=== PATIENT | male | born 1990 | race Caucasian/White ===

== ENCOUNTER 2023-06-09 22:32 | Inpatient (IN) | payer BC, SELFPAY ==
[2023-06-09 19:21] VITALS: BP 130/86
--- NOTE | 2023-06-09 19:37 | ED.GENMED ---
History of Present Illness
General
Chief Complaint: Abdominal Pain
Source: patient
Exam Limitations: none
Time Seen by Provider: 06/09/23 19:28
Travel History
Have you had any contact with someone who has COVID-19?: No
Do you have any symptoms of coronavirus? Fever > 100 degrees, chills, cough, shortness of breath, sore throat, loss of taste or smell, muscle aches, or headache?: No
History of Present Illness
History of Present Illness:
See MDM
Past History
Past History
ED Past Medical History: None
ED Past Surgical History: None
Social History
Tobacco: Non-smoker
Alcohol: None
Phy Exam
Physical Exam
Physical Exam:
See MDM
Course
Orders/Labs/Results
Orders:
Orders
06/09/23 19:37
CT Abd/pelvis W Iv Cont Urgent
Comment:
Reason For Exam: RLQ pain
Ketorolac [Toradol] 30 mg IV NOW STA
06/09/23 19:52
Complete Blood Count/With Diff Urgent
Comprehensive Metabolic Panel Urgent
Abnormal Lab Results
06/09/23
19:52
WBC 13.1 H 10^3/uL
(4.8-10.8)
RBC 4.66 L 10^6/uL
(4.70-6.10)
MCH 31.5 H pg
(27.0-31.0)
MPV 11.5 H fL
(7.4-10.4)
Absolute Neuts (auto) 8.8 H 10^3/uL
(1.4-6.5)
Absolute Monos (auto) 0.9 H 10^3/uL
(0.1-0.6)
Total Bilirubin 2.0 H mg/dl
(0.2-1.3)
ALT 104 H U/L
(0-50)
06/09/23 19:52
06/09/23 19:52
Vital Signs
Initial and Last Documented VS:
Initial Vital Signs
Temp Pulse Resp BP Pulse Ox
97.7 F 84 20 130/86 99
06/09/23 19:21 06/09/23 19:21 06/09/23 19:21 06/09/23 19:21 06/09/23 19:21
Last Documented Vital Signs
Temp Pulse Resp BP Pulse Ox
97.7 F 84 20 130/86 99
06/09/23 19:21 06/09/23 19:21 06/09/23 19:21 06/09/23 19:21 06/09/23 19:21
MDM/Problems Addressed
Differential Diagnosis Includes:
HPI and MDM Narrative:
32-year-old male presenting with vague abdominal pain since yesterday that is now radiating to his right groin. Patient states pain is worse with certain movements. He denies fevers or urinary symptoms. He has had a kidney stone in the past but
states this feels different. He is worried about possible appendicitis
Patient is tender in the right lower quadrant. Will obtain CT
Physical exam
General: Well appearing and non-toxic
HEENT: protecting airway
Neck: appears supple
CV: No evidence of cyanosis
Resp: No accessory muscle use
Abd: Non-distended. Point tenderness right lower quadrant. No rebound
Extremities: No deformities
Neuro: alert
Psych: Normal affect
Skin: Intact
Problems Addressed including Acute and Chronic Conditions affecting care:
1. Diverticulitis with microperforation
Acuity: acute
Prognosis: unstable
Details: CT negative for acute appendicitis. Given the diverticulitis with perforation, will start antibiotics and admit
Updates
CT concerning for diverticulitis with microperforation. Given his pain and leukocytosis, will start IV antibiotics and admit
Differential Diagnosis (but not limited to): Constipation, colitis, kidney stone, appendicitis
Testing considered: Urinalysis but he denies symptoms
Drug therapy (if applicable): OTC meds, please see d/c instruction regarding Rx drugs
Amount and/or Complexity of Data Reviewed
Clinical info obtained from: Patient
External data reviewed: N/A
Labs I independently reviewed (but not limited to): Leukocytosis
Radiology: The CT scan was personally and independently reviewed. In addition, official CT report reviewed.
Pulse Ox: not hypoxic
EKG independently reviewed: N/A
Sql Application Developer: N/A
Critical Care: N/A
Risk of Complication:
Social Determinants of health: Good social support
Discussed with other providers: N/A
Escalation of Care includes Admit/Obs: After being observed in the Emergency Department, pt stable for discharge.
Occasional wrong word or 'sound a like' substitutions may have occurred due to the inherent limitations of voice recognition software. Read the chart carefully and recognize, using context, where substitutions have occurred.
*Critical Care Note
Total Time (30-74mins, 75-104mins- exclusive of procedures): Not Applicable
ED Attending Note
-
Portions of this chart may have been created with voice recognition software.� Occasional wrong word or��sound alike� substitutions may have occurred due to the inherent limitations of voice recognition software.
Discharge Plan
Departure
Patient Disposition: Admit
Date of Disposition: 06/09/23
Time of Disposition: 21:44
Admit to: Med/Surg
Presentation/result/management discussed w/ accepting MD/DO: Hospitalist
Patient with high blood pressure during this ER visit?: No
Discharge Problem:
Diverticula, intestine
Instructions: Diverticulitis (DC)
Referrals:
NONE,* [Family Provider] -
Interventions
Interventions:
*Risk Screen - Suicide Last Done: 06/09/23 19:21
*General Assessment Last Done: 06/09/23 19:21
*Neglect/Abuse Screening Last Done: 06/09/23 19:21
ED- Fall Risk Assessment Last Done: 06/09/23 19:56
*ED COVID-19 Vaccine History Last Done: 06/09/23 19:56
IM-Lvyaxz-Xvpxwvguga Assessment Last Done: 06/09/23 19:55
Discharge Date and Time
Print Language: SETSWANA
[2023-06-09] MEDS: TORADOL 30 MG IV (19:52)
[2023-06-09 19:58] LABS: % Basophils 0.5 % (0-2); % Eosinophils 1.5 % (0-6); % Immature Granulocytes 0.2 % (0-0.5); % Lymphocytes 24.1 % (20.5-51.1); % Monocytes 6.7 % (1.7-9.3); Absolute Basophils 0.1 10^3/uL (0-0.2); Absolute Eosinophils 0.2 10^3/uL (0-0.7); Absolute Lymphocytes 3.1 10^3/uL (1.2-3.4); Absolute Monocytes 0.9 10^3/uL (0.1-0.6); Absolute Neutrophils 8.8 10^3/uL (1.4-6.5); Hematocrit 41.1 % (39.0-52.0); Hemoglobin 14.7 g/dL (13.0-18.0); Mean Corp Hgb Conc. 35.8 g/dL (33.0-37.0); Mean Corpuscular Hgb 31.5 pg (27.0-31.0); Mean Corpuscular Volume 88.2 fL (80.0-94.0); Mean Platelet Volume 11.5 fL (7.4-10.4); Nucleated Red Blood Cells % 0 % (-); Platelet Count 239 10^3/uL (130-400); Red Blood Cell Count 4.66 10^6/uL (4.70-6.10); Red Cell Dist. Width 12.7 % (11.5-14.5); White Blood Cell Count 13.1 10^3/uL (4.8-10.8)
[2023-06-09 20:13] LABS: ALT (SGPT) 104 U/L (0-50); AST (SGOT) 41 U/L (17-59); Albumin 4.4 g/dl (3.5-5.0); Alkaline Phosphatase 98 U/L (38-126); Blood Urea Nitrogen 15 mg/dl (9-20); Calcium 9.7 mg/dl (8.4-10.2); Carbon Dioxide 27 mmol/L (22-30); Chloride 105 mmol/L (98-107); Glucose 95 mg/dl (70-99); Potassium 4.3 mmol/L (3.5-5.1); Sodium 136 mmol/L (135-145); Total Protein 7.1 g/dl (6.3-8.2); eGFR > 60.00
[2023-06-09] MEDS: LEVAQUIN 100 IV (21:57)
[2023-06-09] MEDS: FLAGYL 500 MG 100 IV (21:57)
--- NOTE | 2023-06-09 22:13 | HPS.HSE ---
Family Physician
-
Family Physician: * NONE
Chief Complaint
-
Abd Pain
History of Present Illness
Patient is a 32y M with PMH significant for uveitis who presents to ED complaining of abdominal pain. Patient states that he noted pain in his abdomen beginning yesterday AM. He states that the pain is in the mid abdomen with radiation into the
RLQ. He denies any N/V. No fevers / chills. He had some loose stool yesterday, but admits to feeling constipated and straining earlier today.
he presented to the ED this evening with worsening / persistent pain. He denies any prior history of similar symptoms.
Patient notes that he had a colonoscopy done about 2 months ago. This was done to further evaluate his uveitis and patient states that it was unremarkable. He cannot recall where it was done.
Medical History
Past Medical History
Past Medical History: Reports Other
Additional Past Medical History:
Uveitis
Past Surgical History: Reports None
Social History
Tobacco: Smoker (Current every day smoker. 1 ppd.)
Alcohol: None
Drug: None
Family History
Family History: Other (Mother: EtOH, DM-II, CAD Father: COPD)
Allergies / Home Medications
Allergies reflects when Allergies were last updated in [facility].
Home Medications with original date entered in [facility]
Allergy/Medication List:
Allergies
Allergy/AdvReac Type Severity Reaction Status Date / Time
No Known Allergies Allergy Verified 06/09/23 19:21
Home Medications
No Meds [No Current Medications] 06/09/23
Review of Systems
-
History Source: Patient
A 12 point ROS was completed and negative except as noted: Yes
Constitutional: Denies Fever or Chills
Respiratory: Denies Cough or Trouble Breathing
Cardiac: Denies Chest Pain or Palpitations
Abdomen/GI: Reports Abdominal Pain and Constipated; Denies Nausea, Vomiting, Diarrhea, Bloody Stools or Black Stools
Musculoskeletal: Denies Joint Pain or Edema
Neurological: Denies Dizzy or Headache
Physical Exam
Vital Signs
Vital Signs
Temp Pulse Resp BP Pulse Ox
97.7 F 84 20 130/86 99
06/09/23 19:21 06/09/23 19:21 06/09/23 19:21 06/09/23 19:21 06/09/23 19:21
Physical Exam
General: Other (32y M in no acute distress.)
HEENT: Moist mucous membranes and PERRLA
Respiratory: Clear; No Wheezes, Rales or Rhonchi
Cardiac: S1/S2 and Regular Rhythm; No Murmur
GI: Soft, Non Distended, Normal Bowel Sounds and Other (Pos tenderness in the RLQ. No rebound / guarding. Pos BS.)
Musculoskeletal: No Clubbing, No Cyanosis and No Edema
Neuro: AO x 3
Laboratory Results
-
06/09/23 19:52
06/09/23 19:52
Laboratory Results
Total Bilirubin 2.0 mg/dl (0.2-1.3) H 06/09/23 19:52
AST 41 U/L (17-59) 06/09/23 19:52
ALT 104 U/L (0-50) H 06/09/23 19:52
Alkaline Phosphatase 98 U/L (38-126) 06/09/23 19:52
Impression/Plan
-
A/P: Patient is a 32y M with PMH significant for uveitis who presents to ED complaining of abdominal pain.
Acute Diverticulitis
- Admit for further evaluation and treatment.
- CT scan shows cecal diverticulum with probable area of microperf.
- IV abx with Zosyn
- Colorectal Surgery eval
- NPO, IVF, pain control, etc.
- Follow for clinical improvement.
DVT Prophylaxis: Lovenox
Code Status: Full
[2023-06-09 23:01] VITALS: BP 136/73
[2023-06-09 23:02] VITALS: BMI 33.3
[2023-06-09] MEDS: LR 1000 IV (23:35)
--- NOTE | 2023-06-10 00:47 | PTCARENOTE ---
Patient arrived to unit via stretcher around 22:45 with dx of acute diverticulitis. Patient AA0x3 and denies pain at current time. Ambulates self into room with difficulty. Oriented to unit. Call sumner within reach.
[2023-06-10] MEDS: ZOSYN 50 IV ×4 (05:47→23:16)
[2023-06-10 07:30] VITALS: BP 107/49
[2023-06-10 08:15] LABS: Hematocrit 42.2 % (39.0-52.0); Hemoglobin 14.5 g/dL (13.0-18.0); Mean Corp Hgb Conc. 34.4 g/dL (33.0-37.0); Mean Corpuscular Hgb 31.2 pg (27.0-31.0); Mean Corpuscular Volume 90.8 fL (80.0-94.0); Mean Platelet Volume 11.5 fL (7.4-10.4); Platelet Count 220 10^3/uL (130-400); Red Blood Cell Count 4.65 10^6/uL (4.70-6.10); Red Cell Dist. Width 12.8 % (11.5-14.5); White Blood Cell Count 12.3 10^3/uL (4.8-10.8)
[2023-06-10 08:50] LABS: Blood Urea Nitrogen 14 mg/dl (9-20); Calcium 9.2 mg/dl (8.4-10.2); Carbon Dioxide 24 mmol/L (22-30); Chloride 108 mmol/L (98-107); Estimated Creatinine Clearance > 125 ml/min; Glucose 89 mg/dl (70-99); Potassium 4.3 mmol/L (3.5-5.1); Sodium 137 mmol/L (135-145); eGFR > 60.00
[2023-06-10] MEDS: LR 1000 IV ×2 (09:38→23:16)
--- NOTE | 2023-06-10 10:23 | CON.CRS ---
Consultation
-
Date/Time Consultation Requested: 06/10/2023, 07:30
Date/Time Consultation Performed: 06/10/2023, 08:15
Requesting Provider: Vasiliy Jama DO
Performing Provider: Varun Kapadia MD
Reason for Consultation: diverticulitis
Medical History
-
Chief Complaint: abdominal pain
History of Present Illness:
32yo male presents to the ER on 06/09/2023 complaining of abdominal pain in the RLQ that started on 06/08/2023 morning. He states this pain has never occurred before. He denies nausea or vomiting. His last bowel movement was yesterday and was normal.
Currently now he feels better. He denies issues with urination. His last colonoscopy was in done in March 2023 by Renetta Domingo MD. This was performed due to a diagnosis of uveitis, and was recommended by his intermediate manager that he get this done.
He denies Crohns or UC on his scope. He had some polyps but they were benign. He denies a previous history of abdominal surgeries. He has not had a prior attack of diverticulitis.
In the ER his WBC was 13.1 and is 12.3 today. His vital signs were normal. CT A/P shows inflammatory fat stranding adjacent to the cecum most compatible with acute diverticulitis. Two tiny foci of extraluminal gas suspicious for microperforation. No
pericolonic abscess. We have been consulted for further recommendations.
Past Medical History
Past Medical History: Other (Uveitis)
Past Surgical History: None
Social History
Tobacco: Smoker (1 ppd x 10 years)
Alcohol: Occasional
Family History
Family History: Reviewed & Not Pertinent
Allergies / Home Medications
Allergy/AdvReac Type Severity Reaction Status Date / Time
No Known Allergies Allergy Verified 06/09/23 19:21
�Medication �Instructions �Recorded �Confirmed �Type
No Meds [No Current Medications] 06/09/23 06/09/23 History
Review of Systems
-
History Source: Patient
Abdomen/GI: Abdominal Pain
A 10 point review of systems was completed, and was negative except as per HPI.
Physical Exam
Vital Signs
Temp 98.3 F 06/10/23 07:30
Pulse 63 06/10/23 07:30
Resp Rate 18 06/10/23 07:30
Blood pressure 107/49 06/10/23 07:30
SaO2 96 06/10/23 08:00
06/09/23 06/10/23 06/11/23
06:59 06:59 06:59
Actual Weight 108.153 kg
Body Mass Index (BMI) 33.3
Lab Results / Allergies
06/10/23 07:53
06/10/23 07:53
WBC 12.3 10^3/uL (4.8-10.8) H 06/10/23 07:53
Hgb 14.5 g/dL (13.0-18.0) 06/10/23 07:53
Hct 42.2 % (39.0-52.0) 06/10/23 07:53
Plt Count 220 10^3/uL (130-400) 06/10/23 07:53
Abs Immat Gran (auto) 0.0 10^3/uL (0-0.05) 06/09/23 19:52
Neutrophils % 67.0 % (42.2-75.2) 06/09/23 19:52
Allergy/AdvReac Type Severity Reaction Status Date / Time
No Known Allergies Allergy Verified 06/09/23 19:21
Physical Exam
General: Well Developed and No Apparent Distress
GI: Soft, Non Tender and Tender (RLQ)
Neuro: AO x 3
Psych: Calm
Data Reviewed
-
CT Scan: Image Personally Visualized and interpreted, Report Reviewed by me and Discussed with Patient
Labs: Labs Reviewed by me, Discussed with Physician and Discussed with Patient
Old Records: Reviewed
Assessment / Plan
-
Assessment: 32 yo male with RLQ pain, no PMH of diverticulitis, found to have a an inflammatory fat stranding adjacent to the cecum most compatible with acute diverticulitis. Two tiny foci of extraluminal gas suspicious for microperforation. No
pericolonic abscess, WBC 13.1 on admission
Plan:
1. Continue to monitor vitals/WBC.
2. On IV Zosyn - antibiotics and IVFs.
3. Okay to start on clear liquids today.
4. Will add a CRP/fecal calprotectin.
5. Will need an eventual colonoscopy to look at the area of inflammation - outpatient.
6. No plans for surgery at this time. Will follow.
--- NOTE | 2023-06-10 11:10 | W.PN.HOSP.TC ---
Today's Communication/Plan
-
Pain control,
IV AB
Watch closely
IVF
Assessment / Plan
Assessment / Plan
32-year-old male present to the hospital with abdominal pain. Patient stated that he had abdominal pain in October 2022 he does not remember which side it was. CAT scan did not show diverticulitis at that time. Patient stated that he also had
a colonoscopy in the GI suite in [place] [facility]. He does not remember the GI doctor's name. He also has a history of uveitis that is why he was referred to get a colonoscopy and was told that colonoscopy was normal. He has had uveitis at
least 2 times or more. He has seen a commercial credit portfolio manager in [place] meeting he does not know the name. He is not on any treatment at present for uveitis.
Patient states that the pain was severe yesterday that he could not take it. Therefore came to the hospital. Feels slightly better today. No fever
On examination awake and alert
Cardiovascular system S1-S2 appreciated
Chest clear to auscultation
Abdomen with right lower quadrant tenderness
No pedal edema
Eyes-no redness noted
# Acute diverticulitis With microperforation.
No abscess
Continue Zosyn
Colorectal evaluation appreciated
Get colonoscopy which she had a month or 2 ago report from [facility] [facility] in [place]
Stop IV narcotics. Use Toradol for pain
# History of uveitis
Patient has seen reel cutter and also commercial credit portfolio manager in [place] meeting
Currently not on any treatment
# Active smoker-cessation counseling
# Obesity per BMI
# Alcohol use 2 times a week
# DVT prophylaxis-Lovenox
# Full CODE
Discussed with family at bedside
Anticipated Discharge: 24 - 48 hours
Subjective/Interval History
-
Date of Service: June 10, 2023
Objective Data
-
Labs:
Laboratory Results
06/10/23
07:53
WBC 12.3 H
Hgb 14.5
Hct 42.2
Plt Count 220
Sodium 137
Potassium 4.3
Chloride 108 H
Carbon Dioxide 24
BUN 14
Creatinine 0.8
Glucose 89
Calcium 9.2
Vital Signs:
Vital Signs
Temp Pulse Resp BP Pulse Ox
98.3 F 63 18 107/49 96
06/10/23 07:30 06/10/23 07:30 06/10/23 07:30 06/10/23 07:30 06/10/23 08:00
I&O
06/09/23 06/10/23 06/11/23
06:59 06:59 06:59
Intake Total 710 / 710
Balance 710 / 710
[2023-06-10 15:30] VITALS: BP 129/70
[2023-06-10 23:17] VITALS: BP 131/53
[2023-06-11] MEDS: ZOSYN 50 IV ×2 (05:36→12:57)
[2023-06-11 07:30] VITALS: BP 109/59
[2023-06-11 09:47] LABS: Hematocrit 39.3 % (39.0-52.0); Hemoglobin 13.9 g/dL (13.0-18.0); Mean Corp Hgb Conc. 35.4 g/dL (33.0-37.0); Mean Corpuscular Hgb 31.2 pg (27.0-31.0); Mean Corpuscular Volume 88.1 fL (80.0-94.0); Mean Platelet Volume 11.6 fL (7.4-10.4); Platelet Count 214 10^3/uL (130-400); Red Blood Cell Count 4.46 10^6/uL (4.70-6.10); Red Cell Dist. Width 12.7 % (11.5-14.5)
--- NOTE | 2023-06-11 10:26 | W.PN.CRS1 ---
Today's Communication / Plan
-
low residue diet
follow up in the office
needs eventual colonoscopy
Assessment/Plan
-
Assessment: 32 yo male with RLQ pain, no PMH of diverticulitis, found to have a an inflammatory fat stranding adjacent to the cecum most compatible with acute diverticulitis. Two tiny foci of extraluminal gas suspicious for microperforation. No
pericolonic abscess, WBC 13.1 on admission
Plan:
1. Continue to monitor vitals/WBC.
2. On IV Zosyn.
3. Advance diet to low residue.
4. Fecal calprotectin pending.
5. Will need an eventual colonoscopy to look at the area of inflammation - outpatient.
6. No plans for surgery at this time. Okay for discharge today from our perspective if tolerates a low residue diet.
Subjective Data
Subjective Data
Date of Service: June 11, 2023
Patient states he feels like he is improving. He is having bowel movements. He denies nausea or vomiting. His bowel movements are liquid in nature. He is hungry and would like to try solid food.
Objective Data
-
Vital Signs
Temp Pulse Resp BP Pulse Ox
97.9 F 59 18 109/59 96
06/11/23 07:30 06/11/23 07:30 06/11/23 07:30 06/11/23 07:30 06/11/23 07:30
Intake & Output
06/10/23 06/11/23 06/12/23
06:59 06:59 06:59
Intake Total 710 / 710 3360 / 3360
Balance 710 / 710 3360 / 3360
Intake:
Oral fluids 60 / 60 960 / 960
IV fluids (Total) 600 / 600 2200 / 2200
IV piggybacks 50 / 50 200 / 200
Other:
Number of approximated MODERATE 1
amounts of urine
Number of approximated LARGE 2
amounts of urine
Lab Results
06/11/23 09:37
Physical Exam
-
General: No Acute Distress and AOx3
Abdomen: Soft, Non Distended and Tender (RLQ tenderness - mild)
Skin: Warm and Dry
[2023-06-11 10:38] LABS: Blood Urea Nitrogen 6 mg/dl (9-20); Calcium 9.1 mg/dl (8.4-10.2); Carbon Dioxide 25 mmol/L (22-30); Chloride 106 mmol/L (98-107); Estimated Creatinine Clearance > 125 ml/min; Glucose 113 mg/dl (70-99); Sodium 137 mmol/L (135-145); eGFR > 60.00
--- NOTE | 2023-06-11 11:11 | W.PN.HOSP.TC ---
Today's Communication/Plan
-
watch how he does with diet
Assessment / Plan
Assessment / Plan
32-year-old male present to the hospital with abdominal pain. Patient stated that he had abdominal pain in October 2022 he does not remember which side it was. CAT scan did not show diverticulitis at that time. Patient stated that he also had
a colonoscopy in the GI suite [facility] [place] [facility]. He does not remember the GI doctor's name. He also has a history of uveitis that is why he was referred to get a colonoscopy and was told that colonoscopy was normal. He has had uveitis at
least 2 times or more. He has seen a manager customer service in [place] meeting he does not know the name. He is not on any treatment at present for uveitis.
No pain today. Eating solids
On examination awake and alert
Cardiovascular system S1-S2 appreciated
Chest clear to auscultation
Abdomen Non tender abdomen
No pedal edema
Eyes-no redness noted
# Acute diverticulitis With microperforation.
No abscess
Continue Zosyn, switch to cefdinir and Flagyl at discharge.
Colorectal evaluation appreciated
Get colonoscopy which she had a month or 2 ago report from [facility] in [place]- We have not gotten
LR diet started
# History of uveitis
Patient has seen skin care consultant and also manager customer service in [place] meeting
Currently not on any treatment
# Active smoker-cessation counseling
# Obesity per BMI
# Alcohol use 2 times a week
# DVT prophylaxis-Lovenox
# Full CODE
Discussed with family at bedside
D/W Colorectal-OK for discharge if tolerates diet
Pt aware the if pain comes back he needs to come back to the hospital.
Anticipated Discharge: Today
Subjective/Interval History
-
Date of Service: June 11, 2023
Objective Data
-
Labs:
Laboratory Results
06/11/23
09:37
WBC 11.0 H
Hgb 13.9
Hct 39.3
Plt Count 214
Sodium 137
Potassium 4.0
Chloride 106
Carbon Dioxide 25
BUN 6 L
Creatinine 0.7
Glucose 113 H
Calcium 9.1
Vital Signs:
Vital Signs
Temp Pulse Resp BP Pulse Ox
97.9 F 59 18 109/59 96
06/11/23 07:30 06/11/23 07:30 06/11/23 07:30 06/11/23 07:30 06/11/23 07:30
I&O
06/10/23 06/11/23 06/12/23
06:59 06:59 06:59
Intake Total 710 / 710 3360 / 3360
Balance 710 / 710 3360 / 3360
[2023-06-11 13:49] LABS: ALT (SGPT) 60 U/L (0-50); AST (SGOT) 28 U/L (17-59); Albumin 3.6 g/dl (3.5-5.0); Alkaline Phosphatase 83 U/L (38-126); Direct Bilirubin 0.3 mg/dl (0.0-0.4); Total Bilirubin 1.3 mg/dl (0.2-1.3); Total Protein 6.1 g/dl (6.3-8.2)
--- NOTE | 2023-06-11 14:18 | W.DS.TRANS ---
Addendum entered and electronically signed by Emmanuel Mauro MD 06/11/23 16:51:
Dictation- [id number]
Original Note:
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
-
Discharge Instructions:
Discharge Diagnosis/Procedures Acute diverticulitis, mild elevation one of the
liver test
Diet Low Residue
Activity As tolerated
Driving Restrictions As prior to admission
Blood Work repeat Liver function tests 2 weeks
Instructions: Low Fiber Diet
Stand-Alone Forms:
Changes to Home Medications: Yes
Discharge Medications:
DC Medications w/original date entered in [facility]
cefdinir 300 mg capsule 300 mg PO BID Infection #20 caps 06/11/23
metronidazole 500 mg tablet 500 mg PO Q8H Infection #30 tabs 06/11/23
Home Medication Changes
new
AB above new
Pending Results: No
--- NOTE | 2023-06-11 16:11 | CM ---
Patient seen bedside.
IA completed.
patient lives with spouse and children in a 2 story home.
Independent prior to admission.
Works and drives.
No hx VN.
PCP: None
Pharmacy: [facility] in [place]
Plan: home no needs.
[2023-06-14 08:37] LABS: Calprotectin, Fecal 35 ug/g (<=49)
== END 2023-06-11 15:41 | disposition home or self-care (01) | DRG 392 ==
LOC: 4 WEST ACU 22:32
PROVIDERS: Physician Assistant; ADMITTING PHYSICIAN Hospitalist; ATTENDING PHYSICIAN Hospitalist; EMERGENCY PHYSICIAN Student in an Organized Health Care Education/Training Program; OTHER PHYSICIAN Surgery
DX: K57.20 Diverticulitis of large intestine with perforation and abscess without bleeding (principal); F17.200 Nicotine dependence, unspecified, uncomplicated; E66.9 Obesity, unspecified; Z68.33 Body mass index [BMI] 33.0-33.9, adult
CPT/HCPCS: 74177; 80048; 80053; 82248; 83993; 85025; 85027; 86140; 96365; 96367; 96375; 99285; 99406; Q9967

== ENCOUNTER 2024-01-23 17:27 | Emergency (ER) | payer BC, SELFPAY ==
[2024-01-23 17:37] VITALS: BP 140/78
--- NOTE | 2024-01-23 19:04 | ED.MUSCINJ ---
HPI-Injury
General
Chief Complaint: Musculo-Skeletal Complaint
Source: patient
Exam Limitations: none
Time Seen by Provider: 01/23/24 18:58
Nursing documentation reviewed up to this point in time: agreed with
History of Present Illness-Injury
Initial Injury comments:
33 yo mw h/o 5 yrs ago right radial head fx, has had intermittent pain in the elbow that resolves. States since yesterday, pain in right elbow is worse and only with certain movements. At rest, no pain. He was golfing yesterday which he hasn't done
in a while but states it was bothering him prior to golfing.
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
Past History
Past History
ED Past Medical History: None and Other (fracture R radial head. )
ED Past Surgical History: None
Social History
Tobacco: Smoker
Alcohol: Occasional
Personal:
Living: with family
Employment: Employed
Review of Systems
Review of Systems
Allergies reviewed?: Yes
All Other Systems: ROS reviewed and negative except as documented in HPI and ROS
Musculoskeletal: Reports other (R elbow pain)
Skin: Reports no symptoms
Neurological: Denies weakness or numbness
Phy Exam
Physical Exam
Physical Exam:
PHYSICAL EXAMINATION:
General: no apparent distress, not acutely ill
Neuro: alert and oriented.
Psychiatric: well kept. interactive and cooperative
Musculoskeletal: Mild swelling right elbow, points to lateral epicondyle with elbow flexed to show me his bone is 'sticking out.' Non tender here, normal anatomy. Moves with ease. Distal N/V intact.
Skin: Warm, pink.
Injury Course
Orders/Labs/Results
Orders:
Orders
01/23/24 17:44
Elbow, Right 3 View [CR Elbow - Right Min 3 Views] Urgent
Comment:
Reason For Exam: pain elbow without injury
01/23/24 19:23
Prednisone [Deltasone] 40 mg PO NOW STA
MDM/Problems Addressed
Differential Diagnosis Includes:
overuse injury, arthritis
MDM/Problems Addressed:
33 yo mw h/o 5 yrs ago right radial head fx, has had intermittent pain in the elbow that resolves. States since yesterday, pain in right elbow is worse and only with certain movements. At rest, no pain. He was golfing yesterday which he hasn't done
in a while but states it was bothering him prior to golfing.
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
R elbow xray radiology report read: IMPRESSION:
Findings suggest small joint effusion.
Marked old posttraumatic deformities, as described.
Subtle cortical lucency at the anterior-inferior margin of the radial head; Uncertain if this represents artifact related to superimposition of hypertrophic changes versus subtle hairline fracture.
Will treat for arthritis flare, overuse, Prednisone 40 mg daily for 5 days, referred to Ana who he has seen in past
*Critical Care Note
Total Time (30-74mins, 75-104mins- exclusive of procedures): Not Applicable
ED Attending Note
-
Portions of this chart may have been created with voice recognition software.� Occasional wrong word or��sound alike� substitutions may have occurred due to the inherent limitations of voice recognition software.
Discharge Plan
Departure
Patient Disposition: Home (Routine Discharge)
Date of Disposition: 01/23/24
Time of Disposition: 19:23
Patient with high blood pressure during this ER visit?: No
Condition: Good
Discharge Problem:
Arthralgia of right elbow
Instructions: Joint Pain
Prescriptions:
New
prednisone 20 mg tablet
40 mg PO DAILY Qty: 6 0RF
No Action
cefdinir 300 mg capsule
300 mg PO BID Qty: 20 0RF
metronidazole 500 mg tablet
500 mg PO Q8H Qty: 30 0RF
Referrals:
Parker Cleveland MD [Active] - As needed
Activity Restrictions/Additional Instructions:
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 You were given prednisone 40 mg here today as an anti-inflammatory.
I sent a prescription to your pharmacy for prednisone to take 40 mg a day for the next 3 days
If you get no relief, call the orthopedic doctors office and make next available appointment.
You may take Ibuprofen 600 mg up to 3 times a day for pain.
Rest the arm is much as you can in the next week.
Interventions
Interventions:
*Risk Screen - Suicide Last Done: 01/23/24 17:37
*General Assessment Last Done: 01/23/24 19:36
*Neglect/Abuse Screening Last Done: 01/23/24 17:37
ED- Fall Risk Assessment Last Done: 01/23/24 19:35
*ED COVID-19 Vaccine History Last Done: 01/23/24 19:36
*Nursing Disposition Last Done: 01/23/24 19:36
ED-Musculoskeletal Assessment Last Done: 01/23/24 19:35
Discharge Date and Time
Discharge Date/Time: 01/23/24 19:56
Print Language: LITHUANIAN
[2024-01-23] MEDS: DELTASONE 40 MG PO (19:28)
== END 2024-01-23 19:56 | disposition home or self-care (01) ==
LOC: EMR 17:27
PROVIDERS: EMERGENCY PHYSICIAN Emergency Medicine
DX: M25.521 Pain in right elbow (principal); M25.421 Effusion, right elbow; F17.200 Nicotine dependence, unspecified, uncomplicated; G89.29 Other chronic pain
CPT/HCPCS: 99283; 73080